=== PATIENT | female | born 2000 | race Caucasian/White ===

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

== ENCOUNTER 2022-06-03 18:55 | Emergency (ER) | payer OTHER, SELFPAY ==
[2022-06-03 18:59] VITALS: BMI 24.2
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
[2022-06-03 19:02] VITALS: BP 146/80; PULSE 79; RESP 16; TEMP 36.9; O2SAT 96
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
[2022-06-03] MEDS: HYDROcodone-acetaminophen 5-325 mg Tablet 1 TAB PO (19:33)
--- NOTE | 2022-06-04 10:28 | DCPLANNER ---
Addendum entered by Priya Ervin 06/20/22 09:01: Patient had a follow up appointment with ortho - patient did attend appointment. Addendum entered by Priya Ervin 06/05/22 14:00: Patient has a follow up appointment scheduled for , June 06, 2022 at 2:[address] Smith at ortho. Clinic will call patient with appointment information. Original Note: healthcare project manager had message to schedule a follow up appointment for patient with ortho. healthcare project manager sent patients information to the front office staff at ortho. Patients information will be printed and reviewed. Clinic will call patient with appointment information.
== END 2022-06-03 19:35 | disposition home or self-care (01) ==
PROVIDERS: Emergency Provider Emergency Medicine
DX: S63.601A Unspecified sprain of right thumb, initial encounter (principal); V89.2XXA Person injured in unspecified motor-vehicle accident, traffic, initial encounter
CPT/HCPCS: 73110; 73130; 99283; A4590

== ENCOUNTER 2022-06-06 15:52 | Outpatient (CLI) | payer OTHER, SELFPAY | END 2022-06-06 15:53 | disposition home or self-care (01) | LOC: SPT 15:53 | PROVIDERS: Visit Provider Student in an Organized Health Care Education/Training Program | DX: Z46.89 Encounter for fitting and adjustment of other specified devices (principal); S63.681D Other sprain of right thumb, subsequent encounter; X58.XXXD Exposure to other specified factors, subsequent encounter | CPT/HCPCS: L3809 ==

== ENCOUNTER 2022-06-21 09:11 | Outpatient (CLI) | payer OTHER, SELFPAY ==
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
[2022-06-21] MEDS: gadobenate dimeglumine 20 mL vial IV (09:34)
== END 2022-06-21 09:12 | disposition home or self-care (01) ==
LOC: RAD 09:12
PROVIDERS: Visit Provider Student in an Organized Health Care Education/Training Program
DX: S63.641A Sprain of metacarpophalangeal joint of right thumb, initial encounter (principal); X58.XXXA Exposure to other specified factors, initial encounter
CPT/HCPCS: 73218

== ENCOUNTER → 2022-06-25 07:45 | Outpatient (BNVA) | payer OTHER, SELFPAY | PROVIDERS: Visit Provider Student in an Organized Health Care Education/Training Program | DX: S63.641A Sprain of metacarpophalangeal joint of right thumb, initial encounter (principal); X58.XXXA Exposure to other specified factors, initial encounter | CPT/HCPCS: 73120 ==

== ENCOUNTER 2022-07-03 05:59 | Day surgery (SDC) | payer OTHER, SELFPAY ==
[2022-07-02 09:02] VITALS: BMI 24.2
[2022-07-03] VITALS (15 sets, daily range): BP systolic 101–138; BP diastolic 58–96; PULSE 65–98; RESP 14–19; TEMP 36.2–36.9; O2SAT 96–100
--- NOTE | 2022-07-03 | XR_ITS ---
WS: [id number] Exam: XR finger RT min 2V [id number] Date/Time of Exam: 07/03/2022 12:00 AM Reason For Exam: Right thumb UCL repair The thumb is targeted for evaluation. No fracture or dislocation noted. No soft tissue foreign bodies are seen. There may be postoperative changes in the base of the proximal phalanx. No other significa nt finding.
--- NOTE | 2022-07-03 | SCC_ITS ---
Procedure Done: Right thumb MP UCL repair 17 seconds of fluoroscopic guidance, for a cumulative dose of 0.280 mGy, was provided to Dr. Smith by the radiology department. C-arm images of the left thumb were saved for the patient's permanent record. JILLIAN
[2022-07-03] MEDS: sodium chloride 0.9% 1,000 ML 30 ML IV (06:26)
[2022-07-03] MEDS: acetaminophen 1,000 MG/100 ML PIGGYBACK 400 MG IV (06:27)
[2022-07-03] MEDS: ketorolac 30 mg/mL INJ IVP (06:27)
[2022-07-03] MEDS: scopolamine 1.5 Patch 1 PATCH TRANSDERMA (06:30)
--- NOTE | 2022-07-03 06:51 | W.PM.OPSUD ---
Surgery/Procedure H&P Update DATE OF PROCEDURE: July 03, 2022 DATE H&P PERFORMED: 06/25/22 CHANGES TO PREVIOUS DOCUMENTATION: None PREOP DIAGNOSIS: Right thumb metacarpophalangeal joint ulnar collateral ligament rupture PRIMARY INDICATION FOR PROCEDURE: Right Thumb Metacarpophalangeal joint ulnar collateral ligament tear PLANNED PROCEDURE: Operation Date: 07/03/22 07:00 Proposed Procedures p RIGHT THUMB ULNAR COLLATERAL LIGAMENT METACARPOPHALANGEAL JOINT REPAIR [id number],S63.641A(Right) - Edgar Smith DO
[2022-07-03] MEDS: ceFAZolin 2,000 MG in sodium chloride 0.9% (plus) 50 ML 100 MG IV (06:58)
[2022-07-03] MEDS: lidocaine 1% INJ 20 mL XX (07:29)
--- NOTE | 2022-07-03 07:31 | ANES.PREANE2 ---
Pre-Anesthetic Assessment Height/Weight: Height 1.68 m Weight 68.039 kg Temp Pulse Resp BP Pulse Ox O2 Del Method 98.4 F 82 18 138/94 99 07/03/22 06:17 07/03/22 06:17 07/03/22 06:17 07/03/22 06:17 07/03/22 06:17 07/03/22 06:17 Preop Diagnosis: Right thumb metacarpophalangeal joint ulnar collateral ligament rupture Operation Date: 07/03/22 07:00 Proposed Procedures p RIGHT THUMB ULNAR COLLATERAL LIGAMENT METACARPOPHALANGEAL JOINT REPAIR [id number],S63.641A(Right) - Edgar Smith DO Familial anesthetic complications: none Was Beta Tiago taken within 24 hours: N/A Was Clonidine taken within 24 hours: N/A Last intake: Intake Last Liquid Date 07/03/22 Last Liquid Time 05:00 Last Solid Date 07/02/22 Last Solid Time 19:00 Social No alcohol and No tobacco Exam alert, oriented x 3, clear to auscultation bilaterally and regular rate & rhythm Airway Submandibular: within normal limits Cervical ROM: within normal limits Mallampati: Class II Dentition: full History/ROS No significant history except as noted Anesthetic Plan ASA status: 1 Anesthesia: General Medications/Allergies Home Medications Medication Instructions Recorded Confirmed Last Taken Type THUMB SPICA - RIGHT #1 ea 06/06/22 06/25/22 Unknown Rx norgestimate 0.25 mg-ethinyl 1 tab PO DAILY 07/02/22 07/03/22 07/02/22 History estradiol 35 mcg tablet (Sprintec (28)) Allergies Allergy/AdvReac Type Severity Reaction Status Date / Time No Known Allergies Allergy Verified 07/03/22 06:10 Current Medications Generic Name Dose Route Start Last Admin Trade Name Freq PRN Reason Stop Dose Admin Sodium Chloride 1,000 mls @ 30 mls/hr 07/03/22 06:15 07/03/22 06:26 Sodium Chloride 0.9% IV 07/04/22 06:14 30 mls/hr .Q24H TYE Administration PFSH Anesthesia Medical History Psychiatric care Rupture of ulnar collateral ligament of right thumb Social History Smoking and tobacco status: current every day smoker (vapes) Female Reproductive History Date of last menstrual period: 06/03/22 Data Anesthesia Cardiac Studies: No Data to Display
[2022-07-03 07:39] LABS: OR HCG Qualitative Urine Negative (Negative)
--- NOTE | 2022-07-03 08:15 | PM.PACU ---
PACU note Narrative: Patient seen evaluated in PACU and recovering well. Patient still lethargic from sedation. Unable to follow commands completely. Her fingertips are warm and well-perfused. Compartment soft compressible. Thumb spica on in place clean dry and intact. Unable to assess motor or sensory secondary to patient unable to follow commands. Exam: awake (See narrative above for detailed exam.) Disposition: discharged
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
--- NOTE | 2022-07-03 08:34 | SUR.PHASEI ---
0823 PT TO PACU 5 PT SLEEPS WITH ORAL AIRWAY IN PLACE, GOOD RESP EFFORT NOTED HOB AT 40 DEGREES, IV TO LT WRIST WITH NS 200ML UP AT KVO RATE PER GRAVIY. ID BRACLET TO LT WRIST, PT ID'D WITH 2 IDENTIFIERS, RT LOWER ARM TO HAND WITH SPLINT AND SERA WRAP, DISTAL FINGERS PINK WARM WITH CAP REFILL LESS THAN 3 SECONDS. 0836 PT AWAKES AND ORAL AIRWAY OUT PT DOES NOT OPEN EYES OR FOLLOW COMMANDS, PT REPOSITONED SELF ON RT SIDE , WARM BLANKETS X 3 TO PT, VSS SATS 100% NO DISTRESS NOTED.
--- NOTE | 2022-07-03 08:38 | SUR.PHASEI ---
PT MORE AWAKE, DENIES PAIN AND NAUSEA PT REQUESTS ICE CHIPS , MONITOR SR WITH NO ECTOPY NOTED, VSS.
--- NOTE | 2022-07-03 08:43 | SUR.PHASEI ---
0840 PT ON RA TRIAL, PT VERBALIZED NO NAUSEA, JUST (BAD TASTE IN MY MOUTH) PT GIVEN ICE CHIPS PT TOLERATED WELL, VSS.
--- NOTE | 2022-07-03 08:45 | SUR.PHASEI ---
PT AWAKENS AND REPOSITIONS SELF TO LT SIDE, GOOD RESP EFFORT NOTED RT HAND ELEVATED ON PILLOW.
--- NOTE | 2022-07-03 08:49 | SUR.PHASEI ---
0845 PT APPEARS DISTRESSED TEARFULL , STATES (IT IS HARD TO TAKE A GOOD BREATH) PT SATS 99% ON RA HOB UP TO 45 PT PLACED ON NC AT 2L FOR COMFORT
[2022-07-03] MEDS: fentaNYL 50 mcg/mL INJ 2mL IVP (08:54)
--- NOTE | 2022-07-03 09:00 | SUR.PHASEI ---
0854 PT C/O OF PAIN TO RT WRIST HAND OF 8 PT TEARFUL SEE PAIN MED GIVEN MONITOR UNCHANGED RT HAND DRESSING D/I SITE AND HAND ASSESSMENT UNCHANGED.
--- NOTE | 2022-07-03 09:14 | SUR.PHASEI ---
PT TO OPS BAY 2 HANDOFF AT BEDSIDE, PT AWAKES EASILY TAKING SIPS OF SPRITE.
[2022-07-03] MEDS: HYDROcodone-acetaminophen 5-325 mg Tablet 1 TAB PO (10:49)
--- NOTE | 2022-07-03 15:36 | ANE.PACU2 ---
Inpatient post-anesthesia follow up: Airway intact: Yes Vital signs: Temperature 97.4 F Pulse Rate 71 Respiratory Rate 18 Blood Pressure 121/66 Pulse Oximetry 97 Oxygen Delivery Me thod Room Air Oxygen Flow Rate 2 Fraction of Inspir ed Oxygen Hydration adequate: Yes Nausea and vomiting: No Pain level: 2 Mental status: Baseline
--- NOTE | 2022-07-04 05:56 | PM.OP2 ---
Brief Operative Note Date of procedure: 07/04/22 Pre-op diagnosis: Right thumb MP UCL rupture Post-op diagnosis: same Procedure Done: Right thumb MP UCL repair Surgeon: Edgar Smith Estimated blood loss (mL): 2 Complications: None Post-op Plan: Patient recover in PACU. Patient in thumb spica and clean dry and intact. Patient will be given appropriate discharge instructions as well as pain medication postoperatively. She will discharge home later today. We will have her see OT hand therapy next week to begin range of motion and to get a hand-based thumb spica from OT hand therapy. Follow-up with her in 2 weeks. Understands she has any questions or concerns she can contact the office. Condition: stable Disposition: same day Coding Level of Care Code Acute Service Station Attendant for Yoel Boyce
== END 2022-07-03 11:08 | disposition home or self-care (01) ==
PROVIDERS: Anesthesiology; PCP Family Medicine; Visit Provider Student in an Organized Health Care Education/Training Program
PROC: (CPT 26540; principal; 2022-07-03 07:00)
DX: S63.641A Sprain of metacarpophalangeal joint of right thumb, initial encounter (principal); V49.9XXA Car occupant (driver) (passenger) injured in unspecified traffic accident, initial encounter; F17.290 Nicotine dependence, other tobacco product, uncomplicated
CPT/HCPCS: 26540; 73140; 76000; 81025; 84703; C1713; J1100; J1200; J1885; J2250; J2370; J2405; J2704; J2795; J3010; J7030

== ENCOUNTER 2022-07-10 08:36 | Outpatient (RCR) | payer OTHER, SELFPAY | END 2022-08-05 23:59 | disposition home or self-care (01) | LOC: SOT 08:36 | PROVIDERS: PCP Family Medicine; Visit Provider Student in an Organized Health Care Education/Training Program | DX: S53.3 Traumatic rupture of ulnar collateral ligament (principal); X58.XXXS Exposure to other specified factors, sequela | CPT/HCPCS: 97018; 97022; 97110; 97140; 97166; L3807 ==

== ENCOUNTER 2022-08-06 06:00 | Outpatient (RCR) | payer OTHER, SELFPAY | END 2022-09-04 23:59 | disposition home or self-care (01) | LOC: SOT 06:00 | PROVIDERS: PCP Family Medicine; Visit Provider Student in an Organized Health Care Education/Training Program | DX: S53.3 Traumatic rupture of ulnar collateral ligament (principal); X58.XXXS Exposure to other specified factors, sequela | CPT/HCPCS: 97018; 97110; 97140 ==

== ENCOUNTER → 2022-08-15 14:48 | Outpatient (BNVA) | payer OTHER, SELFPAY | PROVIDERS: PCP Family Medicine; Visit Provider Student in an Organized Health Care Education/Training Program | DX: S63.641D Sprain of metacarpophalangeal joint of right thumb, subsequent encounter (principal); X58.XXXD Exposure to other specified factors, subsequent encounter | CPT/HCPCS: 73130 ==

== ENCOUNTER 2022-09-05 06:00 | Outpatient (RCR) | payer OTHER, SELFPAY | END 2022-09-12 11:55 | disposition home or self-care (01) | LOC: SOT 06:00 | PROVIDERS: PCP Family Medicine; Visit Provider Student in an Organized Health Care Education/Training Program | DX: Z47.89 Encounter for other orthopedic aftercare (principal) | CPT/HCPCS: 97018; 97110 ==

== ENCOUNTER → 2022-10-14 10:34 | Outpatient (BNVA) | payer OTHER, SELFPAY | PROVIDERS: PCP Family Medicine; Visit Provider Student in an Organized Health Care Education/Training Program | DX: S63.641A Sprain of metacarpophalangeal joint of right thumb, initial encounter (principal); X58.XXXA Exposure to other specified factors, initial encounter | CPT/HCPCS: 73130 ==

== ENCOUNTER → 2023-08-21 13:46 | Outpatient (BNVA) | payer OTHER, SELFPAY | PROVIDERS: Visit Provider Family Medicine | DX: Z12.4 Encounter for screening for malignant neoplasm of cervix (principal); N92.6 Irregular menstruation, unspecified | CPT/HCPCS: 80061; 83036; 84146; 84403; 84443; 85025; 88175 ==

== ENCOUNTER 2024-02-17 15:00 | Outpatient (CLI) | payer OTHER, SELFPAY | END 2024-02-17 15:01 | disposition home or self-care (01) | LOC: SLEEP 02-18 11:00 | PROVIDERS: PCP Family Medicine; Visit Provider Family Medicine | DX: G47.10 Hypersomnia, unspecified (principal) | CPT/HCPCS: G0399 ==

== ENCOUNTER 2024-03-02 06:40 | Outpatient (CLI) | payer OTHER, SELFPAY ==
--- NOTE | 2024-03-02 06:45 | US_ITS ---
WS: [id number] ULTRASOUND SOFT TISSUES LEFT axilla HISTORY: large lump in left axilla region COMPARISON: None available. TECHNIQUE: 2-D and color Doppler imaging is submitted. Ultrasound is directed to the LEFT axilla in the area of pain. No lymphadenopathy or discrete mass id entified. There is no well-formed mass or lipoma identified. No increased vascularity. US/US soft tissue/extremity [id number] IMPRESSION: Unremarkable LEFT axilla ultrasound. No mass identified.
== END 2024-03-02 06:41 | disposition home or self-care (01) ==
LOC: RAD 06:40
PROVIDERS: PCP Family Medicine; Visit Provider Family Medicine
DX: M79.89 Other specified soft tissue disorders (principal)
CPT/HCPCS: 76882

== ENCOUNTER → 2025-03-08 14:37 | Outpatient (BNVA) | payer OTHER, SELFPAY | PROVIDERS: PCP Family Medicine; Visit Provider Family Medicine | DX: E28.2 Polycystic ovarian syndrome (principal) | CPT/HCPCS: 80053; 84439; 84443; 85025 ==

== ENCOUNTER → 2025-08-15 10:42 | Outpatient (BNVA) | payer OTHER, SELFPAY | PROVIDERS: PCP Family Medicine; Visit Provider Family Medicine | DX: E03.8 Other specified hypothyroidism (principal) | CPT/HCPCS: 84439; 84443 ==